=== PATIENT | male | born 1970 | race Caucasian/White ===

== ENCOUNTER 2017-03-05 01:36 | Emergency (ER) | payer MEDICARE, OTHER ==
[~2017-03-05] VITALS: Ht 182.9 cm; Wt 120.2 kg
--- NOTE | 2017-03-05 02:20 | NUR ---
C/O RIGHT FLANK PAIN X 1DAY, PT ALERT, ORIENTED X 4, NO RESP DISTRESS NOTED OR REPORTED UPON ASSESSMENT... MD AT BEDSIDE..
[2017-03-05] MEDS ORDERED: IV NORMAL SALINE 1000 ML BAG IV ONE (02:30)
[2017-03-05] MEDS ORDERED: TAMSULOSIN HCL 0.4 MG CAP.SR.24H PO ONE (02:30)
[2017-03-05] MEDS ORDERED: HYDROMORPHONE 1 MG/1 ML DISP.SYRIN IV ONE (02:30)
[2017-03-05] MEDS ORDERED: KETOROLAC TROMETHAMINE 15 MG INJ IV ONE (02:30)
[2017-03-05] MEDS ORDERED: ONDANSETRON 4 MG/2 ML VIAL IV ONE (02:30)
[2017-03-05 03:01] LABS: *BILIRUBIN,URIN NEGATIVE (NEGATIVE); *BLOOD, URINE 2+ (NEGATIVE); *CLARITY,URINE CLEAR (CLEAR); *COLOR,URINE YELLOW (YELLOW); *KETONES,URINE NEGATIVE (NEGATIVE); *PROTEIN,URINE NEGATIVE (NEGATIVE); *UROBILINOGEN,URINE 0.2 E.U./dl (NORMAL); LEUKOCYTE ESTERASE ,URINE NEGATIVE (NEGATIVE); NITRITE, URINE NEGATIVE (NEGATIVE); PH,URINE 5.5 (5.0-8.0); UGLUCOSE NEGATIVE (NEGATIVE)
[2017-03-05 03:02] LABS: CREATININE 1.3 mg/dL (0.6-1.3); POTASSIUM 4.1 mmol/L (3.5-5.1)
[2017-03-05] MEDS ORDERED: KETOROLAC TROMETHAMINE 15 MG INJ ONE (03:02)
[2017-03-05] MEDS ORDERED: TAMSULOSIN HCL 0.4 MG CAP.SR.24H ONE (03:03)
[2017-03-05] MEDS ORDERED: HYDROMORPHONE 2 MG/1 ML DISP.SYRIN ONE (03:03)
[2017-03-05] MEDS ORDERED: ONDANSETRON 4 MG/2 ML VIAL ONE (03:03)
[2017-03-05 03:07] LABS: BILIRUBIN,DIRECT 0.1 mg/dL (0.0-0.2); BILIRUBIN,TOTAL 0.8 mg/dL (0.2-1.0); TOTAL PROTEIN, SERUM 7.8 g/dL (6.4-8.2)
[2017-03-05 03:12] LABS: BACTERIA,URINE FEW /HPF (NONE SEEN); RBC,URINE 50-80 /HPF (0-3); SQUAMOUS EPITHELIAL CELL,UR FEW /HPF (NONE SEEN); WBC,URINE 0-3 /HPF (0-3)
[2017-03-05 03:13] LABS: BASOPHILS % (AUTO) 0.4 % (0.0-2.0); EOSINOPHILS # (AUTO) 0.1 K/uL (0.0-0.7); EOSINOPHILS % (AUTO) 0.9 % (0.0-7.0); HEMATOCRIT 43.1 % (40-50); HEMOGLOBIN 14.6 G/DL (14.0-18.0); LYMPHOCYTES # (AUTO) 1.5 K/UL (0.8-4.8); LYMPHOCYTES % (AUTO) 12.1 % (20.5-51.5); MEAN CORPUSCULAR HGB CONC 34 g/dL (32.0-37.0); MEAN CORPUSCULAR VOLUME 86.1 FL (82.0-92.0); MONOCYTES # (AUTO) 0.7 K/UL (0.1-1.30); MONOCYTES % (AUTO) 5.9 % (0.0-11.0); NEUTROPHILS # (AUTO) 10.1 K/UL (1.8-8.9); NEUTROPHILS % (AUTO) 80.7 % (38.5-71.5); PLATELET COUNT (AUTO) 260 K/UL (150-450); RED BLOOD CELL COUNT(AUTO) 5.01 MIL/UL (4.7-6.1); WHITE BLOOD COUNT (AUTO) 12.4 K/UL (4.0-11.2)
--- NOTE | 2017-03-05 05:41 | NUR ---
Patient discharged to home in stable conditon. Written and verbal after care instructions given. Patient verbalizes understanding of instructions. Pt walked out of ER unassisted with belongings at side...
[2017-03-05 05:47] VITALS: BP 122/67
== END 2017-03-05 05:48 | disposition home or self-care (01) ==
LOC: ER 01:46
DX: N20.2 Calculus of kidney with calculus of ureter (principal); Z59.0 Homelessness; Z87.442 Personal history of urinary calculi
CPT/HCPCS: 36415; 83690; 84550; 85025; A4663; J1170; J1885; J2405; J7030

== ENCOUNTER 2020-10-10 18:37 | Inpatient (IN) | payer MEDICARE, OTHER ==
[~2020-10-10] VITALS: Ht 182.9 cm; Wt 136.8 kg
[2020-10-10] MEDS ORDERED: AMLO10TA4 PO (19:14)
[2020-10-10] MEDS ORDERED: FURO-151 PO (19:14)
[2020-10-10] MEDS ORDERED: LOSA100T31 PO (19:14)
[2020-10-10] MEDS ORDERED: QUET50TA PO (19:14)
[2020-10-10] MEDS ORDERED: LORA-259 PO (19:14)
[2020-10-10] MEDS ORDERED: CIPR-262 PO (19:14)
[2020-10-10] MEDS ORDERED: LOSA50TA39 PO (19:14)
[2020-10-10] MEDS ORDERED: TRIA15CR2 TP (19:14)
[2020-10-10] MEDS ORDERED: ARIP15TA3 PO (19:14)
[2020-10-10] MEDS ORDERED: NAPR500T6 PO (19:14)
[2020-10-10] MEDS ORDERED: NEOM10DR11 OT (19:14)
[2020-10-10] MEDS ORDERED: TAMS-3 PO (19:14)
[2020-10-10] MEDS ORDERED: NEOM7.5D8 EACHEYE (19:14)
[2020-10-10] MEDS ORDERED: FINA5TAB3 PO (19:14)
[2020-10-10] MEDS ORDERED: CEFAZOLIN 1 G in IV DEXTROSE 5% 50 ML IV ONE (19:45)
[2020-10-10] MEDS ORDERED: CEFAZOLIN 1 G VIAL ONE (19:57)
[2020-10-10 20:00] LABS: BASOPHILS # (AUTO) 0.1 K/uL (0.0-8.0); BASOPHILS % (AUTO) 0.7 % (0.0-2.0); EOSINOPHILS # (AUTO) 0.2 K/uL (0.0-0.7); EOSINOPHILS % (AUTO) 1.9 % (0.0-7.0); HEMATOCRIT 36.7 % (36.7-47.1); HEMOGLOBIN 12.5 g/dL (12.5-16.3); LYMPHOCYTES # (AUTO) 2.1 K/uL (20.0-40.0); LYMPHOCYTES % (AUTO) 16.9 % (20.5-51.5); MEAN CORPUSCULAR HEMOGLOBIN 28.6 uug (23.8-33.4); MEAN CORPUSCULAR HGB CONC 34 g/dL (32.5-36.3); MEAN CORPUSCULAR VOLUME 84.2 fL (73.0-96.2); MONOCYTES # (AUTO) 0.9 K/uL (2.0-10.0); MONOCYTES % (AUTO) 7.2 % (0.0-11.0); NEUTROPHILS % (AUTO) 73.3 % (38.5-71.5); PLATELET COUNT (AUTO) 236 K/uL (152-348); RED BLOOD CELL COUNT(AUTO) 4.35 MIL/uL (4.06-5.63); WHITE BLOOD COUNT (AUTO) 12.3 K/uL (3.6-10.2)
[2020-10-10 20:08] LABS: CREATININE 1.1 mg/dL (0.6-1.3); POTASSIUM 3.7 mmol/L (3.5-5.1)
[2020-10-10 20:13] LABS: BILIRUBIN,DIRECT 0.2 mg/dL (0.0-0.2); BILIRUBIN,TOTAL 0.9 mg/dL (0.2-1.0); TOTAL PROTEIN, SERUM 7.4 g/dL (6.4-8.2)
--- NOTE | 2020-10-10 20:35 | NUR ---
Paged [employer] for panel call.
--- NOTE | 2020-10-10 20:37 | NUR ---
Chase Camarillo WELCOME WAGON HOSTESS [employer] data solutions architect for [facility], awaiting call back.
--- NOTE | 2020-10-10 20:58 | NUR ---
Pt. admitted to Med/Surg, under care of Jp Camarillo Dx: Cellulitis Belongs List completed
[2020-10-10] MEDS ORDERED: ACETAMINOPHEN 325 MG TABLET PO PRN (22:00)
[2020-10-10] MEDS ORDERED: MAGNESIUM HYDROXIDE 30 ML LIQUID UDC PO PRN (22:00)
[2020-10-10] MEDS ORDERED: Z GUARD REMEDY PASTE 57 GM TUBE TOP PRN (22:00)
[2020-10-10] MEDS ORDERED: HYDROCODONE/APAP 5-325MG TABLET PO PRN (22:00)
[2020-10-10] MEDS ORDERED: MORPHINE SULFATE 2 MG/1 ML DISP.SYRIN IV PRN (22:00)
[2020-10-10] MEDS ORDERED: ONDANSETRON 4 MG/2 ML VIAL IV PRN (22:00)
[2020-10-10 22:40] VITALS: BP 135/56
[2020-10-10] MEDS ORDERED: VANCOMYCIN IV 2,000 MG in IV DEXTROSE 5% 500 ML IV ONE (23:00)
[2020-10-10] MEDS ORDERED: VANCOMYCIN HCL 500 MG VIAL ONE ×2 (23:30→23:32)
--- NOTE | 2020-10-10 23:45 | NUR ---
RECEIVED PATIENT VIA WHEELCHAIR FROM ED IN NO ACUTE DISTRESS. PATIENT IS ALERT, VERBALLY RESPONSIVE, CAN MAKE NEEDS KNOWN. NO COMPLAINTS OF PAIN AT THIS TIME. ORIENTED PATIENT TO ROOM, BED, AND UNIT. MADE COMFORTABLE. BODY CHECK DONE. TOLERATED PROCEDURE WELL. PATIENT OBSERVED WITH BILATERAL LOWER EXTREMITIES CELLULITIS AND SLIGHT RASH ON BILATERAL BUTTOCKS. WILL CONTINUE TO MONITOR PATIENT AND ATTEND PATIENT'S NEEDS.
[2020-10-11] MEDS: IV 1/2NS 1000 ML 1,000 ML IV PRN ×3 (00:15→13:20)
[2020-10-11] MEDS ORDERED: VANCOMYCIN 1000 MG VIAL ONE (00:15)
[2020-10-11] MEDS ORDERED: VANCOMYCIN HCL 500 MG VIAL ONE (00:16)
[2020-10-11 04:20] VITALS: BP 113/61
[2020-10-11 06:11] LABS: BASOPHILS # (AUTO) 0.1 K/uL (0.0-8.0); BASOPHILS % (AUTO) 0.9 % (0.0-2.0); EOSINOPHILS # (AUTO) 0.2 K/uL (0.0-0.7); EOSINOPHILS % (AUTO) 2.2 % (0.0-7.0); HEMATOCRIT 37.8 % (36.7-47.1); HEMOGLOBIN 12.5 g/dL (12.5-16.3); LYMPHOCYTES # (AUTO) 2.1 K/uL (20.0-40.0); LYMPHOCYTES % (AUTO) 22.4 % (20.5-51.5); MEAN CORPUSCULAR HEMOGLOBIN 28.1 uug (23.8-33.4); MEAN CORPUSCULAR HGB CONC 33 g/dL (32.5-36.3); MEAN CORPUSCULAR VOLUME 85.4 fL (73.0-96.2); MONOCYTES # (AUTO) 0.8 K/uL (2.0-10.0); MONOCYTES % (AUTO) 9.2 % (0.0-11.0); NEUTROPHILS % (AUTO) 65.3 % (38.5-71.5); PLATELET COUNT (AUTO) 234 K/uL (152-348); RED BLOOD CELL COUNT(AUTO) 4.43 MIL/uL (4.06-5.63); WHITE BLOOD COUNT (AUTO) 9.2 K/uL (3.6-10.2)
[2020-10-11 06:29] LABS: CREATININE 1.1 mg/dL (0.6-1.3); MAGNESIUM 2.2 mg/dL (1.8-2.4); PHOSPHOROUS 4.1 mg/dL (2.5-4.9); POTASSIUM 3.5 mmol/L (3.5-5.1); TOTAL PROTEIN, SERUM 6.5 g/dL (6.4-8.2)
[2020-10-11 08:14] LABS: THYROID STIMULATING HORMONE 5.462 mIU/mL (0.358-3.740)
[2020-10-11] MEDS: ENOXAPARIN SODIUM 40 MG/0.4 ML DISP.SYRIN SQ SCH (08:42)
[2020-10-11] MEDS ORDERED: LORAZEPAM 1 MG TABLET PO PRN (10:15)
[2020-10-11] MEDS ORDERED: TAMSULOSIN HCL 0.4 MG CAP.SR.24H PO SCH (10:15)
[2020-10-11] MEDS: ARIPIPRAZOLE 10 MG TABLET PO SCH (10:29)
[2020-10-11] MEDS: FUROSEMIDE 40 MG TABLET PO SCH (10:30)
[2020-10-11] MEDS: FINASTERIDE 5 MG TABLET PO SCH (10:30)
[2020-10-11] MEDS: AMLODIPINE 10 MG TABLET PO SCH (11:52)
[2020-10-11] MEDS: LOSARTAN POTASSIUM 50 MG TABLET PO SCH (11:53)
[2020-10-11 11:59] VITALS: BP 132/70
--- NOTE | 2020-10-11 13:44 | NUR ---
Ginseng Farmer Consultation: 10:35am: Ginseng Farmer consultation completed for homelessness. Patient is a 49 year old male who came to the ED on 10/10/20 complaining of pain, swelling, and tenderness of BLE. Dx of cellulitis. SW met with the patient in his hospital room on med-surg. Patient is awake, alert, oriented x 4. Patient was cooperative and engaged in dialogue with this SW. Patient reported being homeless, however was housed at the [facility] in [place] ([facility]) due to the pandemic. Patient stated that he is no longer staying at the [facility], and instead has been staying in the vicinity of [facility] for the last few weeks. Patient stated "I need to be somewhere that I have seniority, and my references can find me". SW verified patient's address listed on the face sheet, [address], [place] [address], and patient stated that this was his mailing address. Patient's phone number is [phone]. SW verified patient's emergency contact listed on the face sheet as &Mrs. Rubalcava, , and patient stated "it's part of the aragon pack". Patient reports SSDI has a source of income. Patient reports his PCP is Dr. Maria Eugenia Diamond. Patient showed this SW a list of his medications, which included Seroquel, Ativan, and Abilify. SW inquired about patient's hx of mental illness. Patient stated "well there is a biological component and a spiritual one" and discussed how his mother is Bipolar and therefore "biologically it's expected that I would be too". However patient was not able to provide a definite response regarding his mental health diagnosis. When asked about his compliance with medication, patient stated "well sometimes I don't take the Seroquel because I have to be awake to see what I'm doing". Throughout this interview, patient's thought process was circumstantial, and SW needed to redirect patient on several occasions in order to obtain information. Patient also presented with some delusional thought content. Patient's affect and behavior were WNL, patient was cooperative and pleasant with this SW. Patient denied hx of substance abuse. Discharge plans and resources were discussed, and patient was receptive to the homeless resource packet. Patient also requested information on ACCESS transportation services. This SW will provided all resources to the patient. Discharge plans are unknown at this time, although patient would like to return to his previous living arrangement. SANDY will work with case management and patient's physician in order to ensure a safe and proper discharge plan. Addendum: 10/11/20 at 1412 by JOS DELGADO SANDY met with patient's nurse Chema, and discussed outcome of SS consultation. SANDY requested a psych consultation, and Chema stated that she would put in the order for psychiatry consultation.
[2020-10-11] MEDS: VANCOMYCIN IV 1,000 MG in IV DEXTROSE 5% 250 ML IV SCH ×2 (14:28→21:00)
[2020-10-11 16:00] VITALS: BP 128/53
--- NOTE | 2020-10-11 16:44 | NUR ---
manager social work requested psych eval on patient. per manager social work patient seems to be delusional upon lengthy conversation, approved with BRIE Trammell, order placed for psych eval with dr rivera, dr rivera made aware as well Addendum: 10/11/20 at 1648 by DOMINGO CAST RN, RN dr Holden not dr rivera
[2020-10-11] MEDS ORDERED: NAPROXEN 500 MG TABLET PO PRN (17:00)
[2020-10-11] MEDS ORDERED: QUETIAPINE FUMARATE 25 MG TABLET PO SCH (18:00)
--- NOTE | 2020-10-11 19:24 | NUR ---
patient legs still noted with redness and swelling
[2020-10-11 20:35] VITALS: BP 119/56
[2020-10-11] MEDS ORDERED: CEFTRIAXONE 1 G in IV DEXTROSE 5% 50 ML IV SCH (21:45)
--- NOTE | 2020-10-11 21:45 | NUR ---
Waiting for Nursing Stonecutter Hand to bring up Faustino 1g
[2020-10-11] MEDS ORDERED: CEFTRIAXONE /D5W 50ML IVPB **ER PYXIS IV ONE (22:51)
[2020-10-12] MEDS: IV 1/2NS 1000 ML 1,000 ML IV PRN ×2 (00:18→17:31)
[2020-10-12 04:35] VITALS: BP 120/62
[2020-10-12 06:30] LABS: BASOPHILS % (AUTO) 0.4 % (0.0-2.0); EOSINOPHILS # (AUTO) 0.2 K/uL (0.0-0.7); EOSINOPHILS % (AUTO) 2.4 % (0.0-7.0); HEMATOCRIT 39.3 % (36.7-47.1); HEMOGLOBIN 13.3 g/dL (12.5-16.3); LYMPHOCYTES # (AUTO) 1.7 K/uL (20.0-40.0); LYMPHOCYTES % (AUTO) 16.6 % (20.5-51.5); MEAN CORPUSCULAR HEMOGLOBIN 28.7 uug (23.8-33.4); MEAN CORPUSCULAR HGB CONC 34 g/dL (32.5-36.3); MONOCYTES # (AUTO) 0.8 K/uL (2.0-10.0); MONOCYTES % (AUTO) 7.8 % (0.0-11.0); NEUTROPHILS # (AUTO) 7.6 K/uL (1.8-8.9); NEUTROPHILS % (AUTO) 72.8 % (38.5-71.5); PLATELET COUNT (AUTO) 255 K/uL (152-348); RED BLOOD CELL COUNT(AUTO) 4.63 MIL/uL (4.06-5.63); WHITE BLOOD COUNT (AUTO) 10.5 K/uL (3.6-10.2)
[2020-10-12 06:46] LABS: CREATININE 0.9 mg/dL (0.6-1.3); POTASSIUM 3.8 mmol/L (3.5-5.1)
[2020-10-12] MEDS: VANCOMYCIN IV 1,000 MG in IV DEXTROSE 5% 250 ML IV SCH ×3 (06:58→21:17)
[2020-10-12 07:18] VITALS: BP 120/97
--- NOTE | 2020-10-12 07:21 | NUR ---
Pt slept throughout the night. Denies pain or SOB. Tolerated all medications well. Vanco trough 12.7. Bed is locked and in lowest position, call light within reach. No other issues or concerns at this time.
[2020-10-12] MEDS: FINASTERIDE 5 MG TABLET PO SCH (08:10)
[2020-10-12] MEDS: ARIPIPRAZOLE 10 MG TABLET PO SCH (08:10)
[2020-10-12] MEDS: FUROSEMIDE 40 MG TABLET PO SCH (08:10)
[2020-10-12] MEDS: AMLODIPINE 10 MG TABLET PO SCH (08:10)
[2020-10-12] MEDS: ENOXAPARIN SODIUM 40 MG/0.4 ML DISP.SYRIN SQ SCH (08:11)
[2020-10-12] MEDS: LOSARTAN POTASSIUM 50 MG TABLET PO SCH (08:11)
[2020-10-12] MEDS: CEFTRIAXONE 2 G in IV DEXTROSE 5% 100 ML IV SCH (10:17)
[2020-10-12 11:37] VITALS: BP 121/69
--- NOTE | 2020-10-12 12:14 | NUR ---
WOUND CARE CONSULT: PT PRESENTS WITH SCRATCH FERNANDEZ AND REDNESS TO LOWER LEGS WITH SWELLING, PRESENT ON ADMISSION. SKIN TAG NOTED TO BUTTOCK, PRESENT ON ADMISSION. DPM CONSULT CALLED TO DR HAMPAPUR. ISRAEL IN AGREEMENT WITH PLAN OF CARE. PT IS INDEPENDENT WITH BED MOBILITY AND IS CONTINENT.
--- NOTE | 2020-10-12 14:53 | NUR ---
SW met with patient and informed him that after speaking with case management and patient's physician, SNF placement was being considered for the patient. Patient expressed agreement with going to a SNF. Case management to make arrangements. SW provided patient with the following resources: 1) Informational handout on ACCESS transportation services, along with the application. Copy of this was placed in patient's chart. 2) Homeless resource packet: the [facility] Program that provides locations of the estelline shelters: [facility], [place], ; [facility], [address] [place], [address], ; [facility], [facility], [address] [facility] [address], [address], ; [facility] [place], [facility], [address], [address], ; [facility] [place], [facility], [address] [address]; [phone]; [facility], [facility] [place], [address] [place], [address], ; [facility], [place]), [address], [address], [phone]; [facility], [address], [address], ; [facility] [address] [place] [address], [address], [address], ; [employer] [place], [facility], [address] [place] [address], ; [facility] [place], [facility], [address], [address], ; [employer] [place], [facility], [address] [place], [address], ; [facility], [address] [place] [address], , [facility], [address].[place], [place] , , Asia Martinez, [address], [place] [address], , [facility], [address] [place] [address], , [place], [address] [facility] [facility] [place] [address], , [facility], [address] [place] [address], ; the [facility] homeless directory which provides a list of places that individuals can go to throughout the week for hot meals, sack lunches, food pantries, and showers; a list of mental health clinics: [facility] [address] [place] [address], ; [facility] [address] [place] [address], ; [facility] [address] [place] [address], ; a list of medical clinics: [facility] [address], [place]. [place], ; [facility] [address] [facility], [address] [address]; [facility] [address] [facility] [place] [address], ; and a list of substance abuse programs: [facility] Substance Abuse Self-helpline ; [facility] ; [facility] ; [facility] ; [facility] ; [facility] [phone]; [facility] [phone]. SW also provided patient with information on locations of pharmacies. Patient signed the homeless patient waiver form. This SW filed the waiver form in patient's chart.
--- NOTE | 2020-10-12 14:57 | NUR ---
SW informed by ALEENA Don that patient has been accepted to [facility], [address] [place] [address], [place] [address].
[2020-10-12 16:00] VITALS: BP 113/51
--- NOTE | 2020-10-12 19:45 | NUR ---
PATIENT ALERT ORIENTED, NO SOB NO CHEST PAIN. PATIENT HAS NO COMPLAIN OF PAIN, TX DONE CARLEEN LEG CELLULITIS, CONT TO MONITOR.
[2020-10-12 20:09] VITALS: BP 135/59
[2020-10-12] MEDS ORDERED: TAMSULOSIN HCL 0.4 MG CAP.SR.24H PO SCH (21:00)
[2020-10-12] MEDS: CLOTRIMAZOLE/BETAMET DIPROP CREAM 15 GM TUBE TOP SCH (21:14)
[2020-10-12] MEDS ORDERED: CEFTRIAXONE 1 G in IV DEXTROSE 5% 50 ML IV SCH (22:00)
[2020-10-13 04:09] VITALS: BP 121/58
[2020-10-13] MEDS: VANCOMYCIN IV 1,000 MG in IV DEXTROSE 5% 250 ML IV SCH (05:40)
[2020-10-13 06:37] LABS: BASOPHILS # (AUTO) 0.1 K/uL (0.0-8.0); BASOPHILS % (AUTO) 0.6 % (0.0-2.0); EOSINOPHILS # (AUTO) 0.2 K/uL (0.0-0.7); HEMATOCRIT 38.9 % (36.7-47.1); LYMPHOCYTES # (AUTO) 2.1 K/uL (20.0-40.0); LYMPHOCYTES % (AUTO) 19.8 % (20.5-51.5); MEAN CORPUSCULAR HEMOGLOBIN 28.6 uug (23.8-33.4); MEAN CORPUSCULAR HGB CONC 34 g/dL (32.5-36.3); MEAN CORPUSCULAR VOLUME 85.3 fL (73.0-96.2); MONOCYTES # (AUTO) 0.8 K/uL (2.0-10.0); MONOCYTES % (AUTO) 7.7 % (0.0-11.0); NEUTROPHILS # (AUTO) 7.3 K/uL (1.8-8.9); NEUTROPHILS % (AUTO) 69.9 % (38.5-71.5); PLATELET COUNT (AUTO) 260 K/uL (152-348); RED BLOOD CELL COUNT(AUTO) 4.56 MIL/uL (4.06-5.63); WHITE BLOOD COUNT (AUTO) 10.5 K/uL (3.6-10.2)
[2020-10-13 06:41] LABS: CREATININE 1.1 mg/dL (0.6-1.3); POTASSIUM 3.8 mmol/L (3.5-5.1)
--- NOTE | 2020-10-13 07:32 | NUR ---
PATIENT ALERT ORIENTED, NO SOB NO CHEST PAIN, NO COMPLAIN OF PAIN, CONT TO MONITOR.
[2020-10-13] MEDS: LOSARTAN POTASSIUM 50 MG TABLET PO SCH (09:01)
[2020-10-13] MEDS: ARIPIPRAZOLE 10 MG TABLET PO SCH (09:01)
[2020-10-13] MEDS: AMLODIPINE 10 MG TABLET PO SCH (09:01)
[2020-10-13] MEDS: FINASTERIDE 5 MG TABLET PO SCH (09:02)
[2020-10-13] MEDS: FUROSEMIDE 40 MG TABLET PO SCH (09:02)
[2020-10-13] MEDS: CLOTRIMAZOLE/BETAMET DIPROP CREAM 15 GM TUBE TOP SCH (09:02)
[2020-10-13] MEDS: ENOXAPARIN SODIUM 40 MG/0.4 ML DISP.SYRIN SQ SCH (09:04)
[2020-10-13] MEDS: CEFTRIAXONE 2 G in IV DEXTROSE 5% 100 ML IV SCH (09:05)
[2020-10-13] MEDS: IV 1/2NS 1000 ML 1,000 ML IV PRN (09:06)
--- NOTE | 2020-10-13 11:00 | NUR ---
seen by hospitalist with order for discharge today
[2020-10-13] MEDS ORDERED: SULF1TAB48 PO (11:03)
--- NOTE | 2020-10-13 12:00 | NUR ---
REFUSED PICTURE TAKING ON BLE AND BUTTOCKS. REDNESS HEALING WELL AND DRY
[2020-10-13 12:48] VITALS: BP 117/52
--- NOTE | 2020-10-13 13:22 | NUR ---
[facility]. report given to SAMMY at snf
== END 2020-10-13 13:23 | DRG 603 ==
LOC: ER 18:40 → MEDSURG3 22:08
PROVIDERS: ADMIT Nurse Practitioner Acute Care; ATTEND Nurse Practitioner Acute Care
DX: L03.116 Cellulitis of left lower limb (principal); D68.69 Other thrombophilia; Z68.41 Body mass index [BMI] 40.0-44.9, adult; L03.115 Cellulitis of right lower limb; Z74.09 Other reduced mobility; Z59.0 Homelessness; B35.3 Tinea pedis; E02 Subclinical iodine-deficiency hypothyroidism; Z87.11 Personal history of peptic ulcer disease; Z87.442 Personal history of urinary calculi; D72.829 Elevated white blood cell count, unspecified; M19.90 Unspecified osteoarthritis, unspecified site; I73.9 Peripheral vascular disease, unspecified; E66.9 Obesity, unspecified; I87.2 Venous insufficiency (chronic) (peripheral); F29 Unspecified psychosis not due to a substance or known physiological condition; Z20.822 Contact with and (suspected) exposure to COVID-19
CPT/HCPCS: 36415; 83735; 84100; 84443; 85025; G0378; J0690; J0696; J1650; J3370; J3490; J7060